=== PATIENT | male | born 1935 | race Caucasian/White ===

== ENCOUNTER 2019-05-19 07:42 | Outpatient (CLI) | payer MEDICARE ==
--- NOTE | 2019-05-19 09:35 | MRI ---
MRI CERVICAL SPINE WITHOUT CONTRAST: HISTORY: M54.12 cervical radicular pain. COMPARISON: Radiographs of same day. FINDINGS: The cerebellar tonsils terminate at the level of the foramen magnum. No acute fracture or malalignmen t. No marrow infiltrative process. Paraspinal musculature is symmetric. No cervical adenopathy. There are erosive changes of the posterior margin of the odontoid process. 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 Levels are as follows: C2-C3: Severe degenerative facet arthropathy. 2 mm anterolisthesis. Moderate uncinate process hypertr ophy. Mild ligament flavum hypertrophy. Severe left and moderate right neural foraminal narrowing. The spinal canal measures approximately 8 mm. C3-C4: 1-2 mm anterolisthesis. Severe degenerative disc space height loss with large circumferential disc-osteophyte complex. There is abutment of the ventral cord. Spinal canal measures 7 mm. Severe right and moderate to severe left neural foraminal narrowing. C4-C5: Mild degenerative disc space height loss. 2 mm anterolisthesis. Severe right and moderate left hypertrophic facet arthropathy. High-grade ligamentum flavum hypertrophy. There is cord impingement with the spinal canal measuring approximately 5 mm. C5-C6: Severe degenerative disc space height loss with a very large circumferential disc-osteophyte c omplex. Mild ligament of flavum hypertrophy. There is cord impingement of the spinal canal measuring approximately 5 mm. Severe left and moderate to severe right neural foraminal narrowing. C6-C7: Moderate degenerative disc space height loss. Large circumferential disc osteophyte complex. M ild degenerative disease of the right facet joint. 1-2 mm retrolisthesis. Severe right and left neural foraminal narrowing. C7-T1: 2 mm anterolisthesis. Moderate hypertrophic facet arthrosis on the right and moderate to sever e on the left. Moderate bilateral neural foraminal narrowing. There is abnormal increased fluid signal of the cord which is impinged from C3-C5 and mildly atrophie d distal to C5. IMPRESSION: 1. High-grade multilevel severe degenerative change as described with exiting nerve root impingement as well as cord impingement. 2. Mild edema throughout the cord from C3-C5. Transcribed Date/Time: 05/19/2019 9:49 AM
--- NOTE | 2019-05-19 10:06 | RAD ---
XR Sinuses Leal View Only History: MRI clearance Comparison: None. Findings: No radiopaque foreign object is seen projecting over the orbits. Impression: No radiopaque foreign object seen projecting over the orbits.
--- NOTE | 2019-05-19 10:20 | RAD ---
CERVICAL SPINE SERIES THREE VIEWS: HISTORY: Neck pain. FINDINGS: There are severe osteoarthritic changes of the neck. There is marked disk narrowing at C3-C4, C5-C6 a nd C6-C7. There is moderate disk narrowing at the C4-C5 level. There are prominent degenerative facet changes present. There are carotid bulb calcifications noted. IMPRESSION: Severe osteoarthritic changes of the spine. POS: TPC
== END 2019-05-19 07:43 | disposition home or self-care (01) ==
LOC: BICMRI 07:42
PROVIDERS: ATTEND Family Medicine
DX: M50.10 Cervical disc disorder with radiculopathy, unspecified cervical region (principal); M47.22 Other spondylosis with radiculopathy, cervical region; R60.0 Localized edema; G95.9 Disease of spinal cord, unspecified
CPT/HCPCS: 70210; 72040; 72141

== ENCOUNTER 2020-06-15 10:27 | Outpatient (CLI) | payer MEDICARE ==
--- NOTE | 2020-06-15 11:19 | CT ---
Exam: CT cervical spine without contrast HISTORY: Chronic neck pain. COMPARISON: None. CORRELATION: Cervical spine MRI 05/19/2019. FINDINGS: No craniocervical dissociation. Appropriate alignment of the lateral masses of C1 and C2. Intact odon toid process Appropriate alignment of the facets. 3.5 mm of anterolisthesis of C2 upon C3 and 3.2 mm of anterolisthesis of C4 upon C5 is once again dem onstrated. Soft tissue neck structures: No mass, lymphadenopathy or hematoma. No prevertebral soft tissue swelli ng. Upper mediastinum and lung apices: Unremarkable Central spinal canal: Evaluation is limited by the lack of intrathecal contrast. C2-C3: Broad-based disc osteophyte complex. Moderate central canal stenosis. Moderate bilateral neura l foraminal narrowing due to uncovertebral and facet hypertrophy. C3-C4: Severe loss of disc space height. Broad-based disc osteophyte complex. Severe central canal st enosis. Severe bilateral neural foraminal narrowing due to uncovertebral and right greater the left facet hypertrophy C4-C5: Broad-based disc bulge with slight superior disc migration. Moderate central canal stenosis. M oderate to severe right and left neural foraminal narrowing due to uncovertebral and facet hypertrophy. C5-C6: Vacuum disc phenomenon. There is a broad-based disc osteophyte complex with a central/left par acentral disc osteophyte complex. Severe central canal stenosis. Severe bilateral neural foraminal narrowing. C6-C7: Severe loss of disc space height. Broad-based disc osteophyte complex. Severe central canal st enosis and severe bilateral neural foraminal narrowing. C7-T1: No significant central canal stenosis or significant neural foraminal narrowing. Vertebral bodies: Cervical spine vertebral body height is maintained. No fracture. IMPRESSION: 1. No fracture. 2. Multilevel degenerative changes of the cervical spine as detailed above. Transcribed Date/Time: 06/15/2020 11:27 AM
== END 2020-06-15 10:28 | disposition home or self-care (01) ==
LOC: BICCT 10:27
PROVIDERS: ATTEND Surgery
DX: M47.12 Other spondylosis with myelopathy, cervical region (principal); M50.00 Cervical disc disorder with myelopathy, unspecified cervical region
CPT/HCPCS: 72125

== ENCOUNTER 2020-08-28 08:44 | Outpatient (CLI) | payer MEDICARE ==
[2020-08-28 11:34] LABS: Hemoglobin 15.9 g/dL (13.5-17.5); Mean Corpuscular HGB CONC 33.1 g/dL (32.0-36.0); Mean Corpuscular Hemoglobin 29.9 pg (27.0-33.0); Mean Corpuscular Volume 90.4 fl (81.2-95.1); Mean Platelet Volume 9.9 fl (7.4-10.4); Platelet Count 297 10x3/uL (150-450); RBC Distribution Width 13.5 % (11.5-14.5); Red Blood Cell (RBC) Count 5.31 10x6/uL (4.32-5.72); White Blood Cell (WBC) Count 8.3 10x3/uL (3.5-10.5)
[2020-08-28 11:44] LABS: Anion Gap 12 mmol/L (10-20); BUN (Urea Nitrogen) 11 mg/dL (8.4-25.7); Calc. Creatinine Clearance 0 mL/min (70-130); Calcium 9.5 mg/dL (7.8-10.44); Carbon Dioxide 31 mmol/L (23-31); Chloride 98 mmol/L (98-107); Glucose 111 mg/dL (83-110); Potassium 4.1 mmol/L (3.5-5.1); Sodium 137 mmol/L (136-145)
[2020-08-28 12:03] LABS: PTT 26.8 sec (22.0-33.0); Prothrombin Time 10.2 sec (9.5-12.1)
[2020-08-28 22:18] LABS: SARS-CoV-2 PCR by NAA Not Detected (NotDetected)
== END 2020-08-28 08:45 | disposition home or self-care (01) ==
LOC: LABBT 08:44
PROVIDERS: ATTEND Surgery
DX: Z01.818 Encounter for other preprocedural examination (principal); M48.02 Spinal stenosis, cervical region; M54.12 Radiculopathy, cervical region; Z20.822 Contact with and (suspected) exposure to COVID-19
CPT/HCPCS: 80048; 85027; 85610; 85730; 93005; U0003; U0005; 87635; 93010

== ENCOUNTER 2020-08-31 06:09 | Inpatient (IN) | payer MEDICARE ==
[2020-08-31] MEDS ORDERED: Levofloxacin 500 mg/D5W 100 ml Premix Bag ONE (06:36)
[2020-08-31] MEDS ORDERED: Bacitracin Zinc Ointment 30 gm TUBE ONE (06:36)
[2020-08-31] MEDS ORDERED: Clindamycin/D5W 900 mg/50 ml Premix Bag ONE ×2 (06:36→16:23)
[2020-08-31] MEDS ORDERED: Thrombin 5000 UNITS/5 ML VIAL ONE (06:36)
[2020-08-31] MEDS ORDERED: Fentanyl 250 MCG/5 ML VIAL ONE (07:01)
[2020-08-31] MEDS ORDERED: Glycopyrrolate 0.2 MG/ML 5 ML SYRINGE ONE (07:51)
[2020-08-31] MEDS ORDERED: Lidocaine 1% PF 5 ML VIAL ONE (07:51)
[2020-08-31] MEDS ORDERED: PHENYLEPHRINE-NS 100 MCG/ML 10 ML SYRINGE ONE ×2 (07:51→11:41)
[2020-08-31] MEDS ORDERED: Dexamethasone 20 MG/5 ML VIAL ONE (07:51)
[2020-08-31] MEDS ORDERED: Ondansetron PF 4 MG/2 ML Vial ONE (07:51)
[2020-08-31] MEDS ORDERED: PROPOFOL 200 MG/20 ML VIAL ONE (07:51)
[2020-08-31] MEDS ORDERED: ePHEDrine 50 MG/ML VIAL ONE (07:51)
[2020-08-31] MEDS ORDERED: Rocuronium Bromide 10 MG/ML (10ML VIAL) ONE (07:51)
[2020-08-31] MEDS ORDERED: tiZANidine HCl 4 MG TAB PO PRN (07:54)
[2020-08-31] MEDS ORDERED: Acetaminophen 325 MG TAB PO PRN (07:54)
[2020-08-31] MEDS ORDERED: Mag-Al 1200 mg/1200 mg/30 ML UDCUP PO PRN (07:54)
[2020-08-31] MEDS ORDERED: traMADol HCl 50 MG TAB PO PRN (07:54)
[2020-08-31] MEDS ORDERED: Morphine 2 MG/ML VIAL SLOW IVP PRN (07:54)
[2020-08-31] MEDS ORDERED: HYDROcodone/Acetaminophen 7.5/325 mg Tablet PO PRN (07:54)
[2020-08-31] MEDS ORDERED: Milk Of Magnesia 30 ML UDCUP PO PRN (07:54)
[2020-08-31] MEDS ORDERED: Bisacodyl 10 MG SUPP PR PRN (07:54)
[2020-08-31] MEDS ORDERED: Acetaminophen/Codeine 30-300mg Tablet PO PRN (07:54)
[2020-08-31] MEDS ORDERED: Rocuronium Bromide 50 MG/5 ML VIAL ONE ×2 (08:54→10:28)
[2020-08-31] MEDS ORDERED: HYDROmorphone 2 MG/ML VIAL ONE (10:35)
[2020-08-31] MEDS ORDERED: PROPOFOL 20 ML ONE (10:38)
[2020-08-31] MEDS ORDERED: SUGAMMADEX SODIUM 200 MG/2 ML VIAL ONE (12:07)
[2020-08-31] MEDS ORDERED: Promethazine HCl 25 MG/ML VIAL IM PRN ×2 (12:49→13:45)
[2020-08-31] MEDS ORDERED: Promethazine HCl 25 MG/ML VIAL SLOW IVP PRN (12:49)
[2020-08-31] MEDS ORDERED: Ondansetron HCl/PF 4 MG/2 ML Vial IVP PRN (12:49)
[2020-08-31] MEDS ORDERED: HYDROmorphone 2 MG/ML VIAL SLOW IVP PRN (12:49)
[2020-08-31] MEDS ORDERED: Fentanyl 100 MCG/2 ML VIAL ONE ×2 (13:09→13:30)
[2020-08-31] MEDS ORDERED: Ondansetron PF 4 MG/2 ML Vial IVP PRN (13:45)
[2020-08-31] MEDS ORDERED: Zolpidem Tartrate 5 MG TAB PO PRN (13:45)
[2020-08-31] MEDS ORDERED: fentaNYL Citrate/PF 2,000 MCG in Sodium Chloride 0.9% 60 ML IV PRN (13:45)
[2020-08-31] MEDS ORDERED: diphenhydrAMINE 25 MG CAP PO PRN (13:45)
[2020-08-31] MEDS ORDERED: Naloxone HCl 0.4 mg/ml Vial IV PRN (13:45)
[2020-08-31] MEDS ORDERED: Acetaminophen 500 MG TAB PO PRN (13:46)
[2020-08-31] MEDS ORDERED: HYDROmorphone 0.5 MG/0.5 ML SYRINGE ONE ×2 (13:52→14:07)
[2020-08-31] MEDS ORDERED: Clindamycin/D5W 900 MG in Premix Bag 1 BAG IVPB SCH (14:00)
[2020-08-31] MEDS: Sodium Chloride 0.9% 1,000 ML IV SCH (16:18)
[2020-08-31] MEDS: Hydrochlorothiazide 25 MG TAB PO SCH (16:19)
[2020-08-31] MEDS: Amlodipine 10 MG TAB PO SCH (16:19)
[2020-08-31] MEDS: Clindamycin/D5W 900 MG in Premix Bag 1 BAG IVPB SCH (16:43)
[2020-08-31] MEDS: Cholecalciferol 1,000 UNITS (25 MCG) TAB PO SCH (20:39)
[2020-08-31] MEDS: Tamsulosin HCl 0.4 MG CAP PO SCH (20:39)
[2020-08-31] MEDS: Finasteride 5 MG TAB PO SCH (20:39)
[2020-08-31] MEDS ORDERED: hydrALAZINE 20 MG/ML VIAL SLOW IVP PRN (21:56)
[2020-08-31] MEDS: Labetalol HCl 100 MG/20 ML VIAL SLOW IVP PRN (22:30)
[2020-09-01] MEDS: Clindamycin/D5W 900 MG in Premix Bag 1 BAG IVPB SCH ×3 (00:16→17:06)
[2020-09-01 00:45] LABS: #Lymphocytes 1.1 thou/uL (1.20-3.40); #Monocytes 1.1 thou/uL (0.11-0.59); #Neutrophils 12.8 thou/uL (1.40-6.50); %Basophils 0.1 % (0.0-1.0); %Lymphocytes 7.5 % (21.0-51.0); %Neutrophils 85.3 % (42.0-75.0); Hemoglobin 14.7 g/dL (14.0-18.0); Mean Corpuscular HGB CONC 33.4 g/dL (32.0-36.0); Mean Corpuscular Hemoglobin 30.8 pg (27.0-31.0); Mean Corpuscular Volume 92.2 fL (78.0-98.0); Mean Platelet Volume 7.2 fL (7.4-10.4); Platelet Count 272 thou/uL (130-400); RBC Distribution Width 12.9 % (11.5-14.5); Red Blood Cell (RBC) Count 4.79 mill/uL (4.70-6.10); White Blood Cell (WBC) Count 14.9 thou/uL (4.8-10.8)
[2020-09-01 01:02] LABS: Lactic Acid 3.1 mmol/L (0.5-2.2)
[2020-09-01 01:06] LABS: ALT (SGPT) 27 U/L (8-55); AST (SGOT) 50 U/L (5-34); Albumin 3.9 g/dL (3.4-4.8); Alkaline Phosphatase 76 U/L (40-110); Anion Gap 12 mmol/L (10-20); BUN (Urea Nitrogen) 9 mg/dL (8.4-25.7); Bilirubin, Total 0.6 mg/dL (0.2-1.2); Calc. Creatinine Clearance 119 mL/min (70-130); Calcium 8.7 mg/dL (7.8-10.44); Carbon Dioxide 25 mmol/L (23-31); Chloride 100 mmol/L (98-107); Globulin 2.9 g/dL (2.4-3.5); Glucose 169 mg/dL (83-110); Magnesium 1.7 mg/dL (1.6-2.6); Potassium 3.9 mmol/L (3.5-5.1); Protein, Total 6.8 g/dL (5.8-8.1); Sodium 133 mmol/L (136-145)
[2020-09-01] MEDS ORDERED: Magnesium 2 GM/50 ML 2 GM in Premix Bag 1 BAG IVPB SCH (01:45)
[2020-09-01] MEDS: Sodium Chloride 0.9% 1,000 ML IV SCH ×2 (02:03→10:38)
[2020-09-01 02:42] VITALS: BMI 25.8
[2020-09-01 05:22] LABS: #Lymphocytes 1.4 thou/uL (1.20-3.40); #Monocytes 2.1 thou/uL (0.11-0.59); #Neutrophils 12.6 thou/uL (1.40-6.50); %Basophils 0.2 % (0.0-1.0); %Eosinophils 0.1 % (0.0-10.0); %Lymphocytes 8.9 % (21.0-51.0); %Monocytes 12.9 % (0.0-10.0); Hemoglobin 14.3 g/dL (14.0-18.0); Mean Corpuscular HGB CONC 32.5 g/dL (32.0-36.0); Mean Corpuscular Volume 92.3 fL (78.0-98.0); Mean Platelet Volume 7.2 fL (7.4-10.4); Platelet Count 269 thou/uL (130-400); Red Blood Cell (RBC) Count 4.76 mill/uL (4.70-6.10); White Blood Cell (WBC) Count 16.2 thou/uL (4.8-10.8)
[2020-09-01 05:40] LABS: Anion Gap 11 mmol/L (10-20); BUN (Urea Nitrogen) 8 mg/dL (8.4-25.7); Calc. Creatinine Clearance 104 mL/min (70-130); Calcium 8.7 mg/dL (7.8-10.44); Carbon Dioxide 27 mmol/L (23-31); Chloride 100 mmol/L (98-107); Glucose 128 mg/dL (83-110); Magnesium 2.4 mg/dL (1.6-2.6); Potassium 3.8 mmol/L (3.5-5.1); Sodium 134 mmol/L (136-145)
[2020-09-01] MEDS ORDERED: OLANZapine 10 MG VIAL IM SCH (06:45)
[2020-09-01] MEDS ORDERED: Ziprasidone 20 MG CAP PO SCH ×2 (07:00→07:30)
[2020-09-01] MEDS: Labetalol HCl 100 MG/20 ML VIAL SLOW IVP PRN ×3 (07:28→23:45)
[2020-09-01] MEDS: Cholecalciferol 1,000 UNITS (25 MCG) TAB PO SCH (07:46)
[2020-09-01] MEDS: Tamsulosin HCl 0.4 MG CAP PO SCH (07:46)
[2020-09-01] MEDS: Amlodipine 10 MG TAB PO SCH (07:47)
[2020-09-01] MEDS: Hydrochlorothiazide 25 MG TAB PO SCH (07:48)
[2020-09-01] MEDS: Finasteride 5 MG TAB PO SCH (07:48)
[2020-09-01] MEDS: Morphine 2 MG/ML VIAL SLOW IVP SCH ×2 (07:59→08:41)
[2020-09-01] MEDS: Diazepam 5 MG TAB PO PRN ×2 (13:24→21:26)
[2020-09-01] MEDS: diphenhydrAMINE 50 MG/ML VIAL IM/IV PRN (23:53)
[2020-09-02] MEDS: Clindamycin/D5W 900 MG in Premix Bag 1 BAG IVPB SCH ×3 (01:17→16:09)
[2020-09-02] MEDS: Sodium Chloride 0.9% 1,000 ML IV SCH ×2 (01:25→13:02)
[2020-09-02] MEDS: diphenhydrAMINE 50 MG/ML VIAL IM/IV PRN (03:08)
[2020-09-02 05:36] LABS: #Lymphocytes 1.3 thou/uL (1.20-3.40); #Neutrophils 13.7 thou/uL (1.40-6.50); %Eosinophils 0.1 % (0.0-10.0); %Lymphocytes 7.5 % (21.0-51.0); %Monocytes 11.9 % (0.0-10.0); %Neutrophils 80.6 % (42.0-75.0); Hemoglobin 14.8 g/dL (14.0-18.0); Mean Corpuscular HGB CONC 32.1 g/dL (32.0-36.0); Mean Corpuscular Hemoglobin 29.6 pg (27.0-31.0); Mean Corpuscular Volume 92.2 fL (78.0-98.0); Mean Platelet Volume 7.2 fL (7.4-10.4); Platelet Count 250 thou/uL (130-400); RBC Distribution Width 12.7 % (11.5-14.5); Red Blood Cell (RBC) Count 5.01 mill/uL (4.70-6.10)
[2020-09-02 05:57] LABS: Anion Gap 12 mmol/L (10-20); BUN (Urea Nitrogen) 11 mg/dL (8.4-25.7); Calc. Creatinine Clearance 91 mL/min (70-130); Carbon Dioxide 30 mmol/L (23-31); Chloride 93 mmol/L (98-107); Glucose 163 mg/dL (83-110); Potassium 3.5 mmol/L (3.5-5.1); Sodium 131 mmol/L (136-145)
[2020-09-02] MEDS: Cholecalciferol 1,000 UNITS (25 MCG) TAB PO SCH ×2 (07:57→09:05)
[2020-09-02] MEDS: Finasteride 5 MG TAB PO SCH (07:57)
[2020-09-02] MEDS: Amlodipine 10 MG TAB PO SCH ×2 (07:57→08:07)
[2020-09-02] MEDS: Hydrochlorothiazide 25 MG TAB PO SCH (07:57)
[2020-09-02] MEDS: Tamsulosin HCl 0.4 MG CAP PO SCH (07:58)
[2020-09-02] MEDS: Labetalol HCl 100 MG/20 ML VIAL SLOW IVP PRN (09:04)
[2020-09-02] MEDS ORDERED: Morphine 2 MG/ML VIAL SLOW IVP PRN (15:34)
[2020-09-02] MEDS: Acetaminophen/Codeine 30-300mg Tablet PO PRN (20:36)
[2020-09-03] MEDS: Clindamycin/D5W 900 MG in Premix Bag 1 BAG IVPB SCH ×2 (01:55→08:20)
[2020-09-03] MEDS: Sodium Chloride 0.9% 1,000 ML IV SCH ×2 (02:57→15:08)
[2020-09-03] MEDS: HYDROcodone/Acetaminophen 7.5/325 mg Tablet PO PRN ×3 (04:53→21:36)
[2020-09-03] MEDS: Labetalol HCl 100 MG/20 ML VIAL SLOW IVP PRN (04:55)
[2020-09-03] MEDS: Tamsulosin HCl 0.4 MG CAP PO SCH (08:21)
[2020-09-03] MEDS: Amlodipine 10 MG TAB PO SCH (08:22)
[2020-09-03] MEDS: Cholecalciferol 1,000 UNITS (25 MCG) TAB PO SCH (08:22)
[2020-09-03] MEDS: Finasteride 5 MG TAB PO SCH (08:23)
[2020-09-03] MEDS: Acetaminophen/Codeine 30-300mg Tablet PO PRN (08:32)
[2020-09-03 12:30] LABS: Anion Gap 11 mmol/L (10-20); BUN (Urea Nitrogen) 23 mg/dL (8.4-25.7); Calc. Creatinine Clearance 90 mL/min (70-130); Calcium 8.8 mg/dL (7.8-10.44); Carbon Dioxide 31 mmol/L (23-31); Chloride 94 mmol/L (98-107); Glucose 189 mg/dL (83-110); Potassium 3.1 mmol/L (3.5-5.1); Sodium 133 mmol/L (136-145)
[2020-09-03] MEDS: Potassium Chloride 20 MEQ TAB PO SCH ×2 (15:25→21:36)
[2020-09-03] MEDS: hydrALAZINE 20 MG/ML VIAL SLOW IVP PRN (19:48)
[2020-09-04] MEDS: traMADol HCl 50 MG TAB PO PRN ×2 (03:49→12:52)
[2020-09-04] MEDS: Acetaminophen/Codeine 30-300mg Tablet PO PRN ×3 (03:49→17:50)
[2020-09-04] MEDS: hydrALAZINE 20 MG/ML VIAL SLOW IVP PRN (03:51)
[2020-09-04] MEDS: Sodium Chloride 0.9% 1,000 ML IV SCH ×2 (05:26→17:27)
[2020-09-04] MEDS: Tamsulosin HCl 0.4 MG CAP PO SCH (08:22)
[2020-09-04] MEDS: Cholecalciferol 1,000 UNITS (25 MCG) TAB PO SCH (08:22)
[2020-09-04] MEDS: Amlodipine 10 MG TAB PO SCH (08:22)
[2020-09-04] MEDS: Finasteride 5 MG TAB PO SCH (08:22)
[2020-09-04 08:31] LABS: #Lymphocytes 1.7 thou/uL (1.20-3.40); #Monocytes 1.4 thou/uL (0.11-0.59); #Neutrophils 11.2 thou/uL (1.40-6.50); %Basophils 0.3 % (0.0-1.0); %Eosinophils 0.3 % (0.0-10.0); %Lymphocytes 11.7 % (21.0-51.0); %Neutrophils 77.7 % (42.0-75.0); Hemoglobin 15.8 g/dL (14.0-18.0); Mean Corpuscular HGB CONC 33.5 g/dL (32.0-36.0); Mean Corpuscular Hemoglobin 30.9 pg (27.0-31.0); Mean Corpuscular Volume 92.2 fL (78.0-98.0); Mean Platelet Volume 7.4 fL (7.4-10.4); Platelet Count 277 thou/uL (130-400); RBC Distribution Width 12.7 % (11.5-14.5); Red Blood Cell (RBC) Count 5.12 mill/uL (4.70-6.10); White Blood Cell (WBC) Count 14.4 thou/uL (4.8-10.8)
[2020-09-04 08:41] LABS: Anion Gap 14 mmol/L (10-20); BUN (Urea Nitrogen) 20 mg/dL (8.4-25.7); Calc. Creatinine Clearance 104 mL/min (70-130); Calcium 9.3 mg/dL (7.8-10.44); Carbon Dioxide 27 mmol/L (23-31); Chloride 97 mmol/L (98-107); Glucose 129 mg/dL (83-110); Potassium 3.8 mmol/L (3.5-5.1); Sodium 134 mmol/L (136-145)
[2020-09-04 15:38] VITALS: BP 175/92; TEMP 98.2
== END 2020-09-04 19:04 | DRG 454 ==
LOC: SDC 06:09 → SURG A 07:51
PROVIDERS: ADMIT Surgery; ATTEND Surgery
PROC: 0RG20A0 Fusion of 2 or more Cervical Vertebral Joints with Interbody Fusion Device, Anterior Approach, Anterior Column, Open Approach (ICD-10-PCS; principal; 2020-08-31)
PROC: 0RG2071 Fusion of 2 or more Cervical Vertebral Joints with Autologous Tissue Substitute, Posterior Approach, Posterior Column, Open Approach (ICD-10-PCS; 2020-08-31)
PROC: 0RB30ZZ Excision of Cervical Vertebral Disc, Open Approach (ICD-10-PCS; 2020-08-31)
PROC: 01N10ZZ Release Cervical Nerve, Open Approach (ICD-10-PCS; 2020-08-31)
PROC: 00NW0ZZ Release Cervical Spinal Cord, Open Approach (ICD-10-PCS; 2020-08-31)
DX: M48.02 Spinal stenosis, cervical region (principal); G95.9 Disease of spinal cord, unspecified; F05 Delirium due to known physiological condition; E87.1 Hypo-osmolality and hyponatremia; M54.12 Radiculopathy, cervical region; N40.0 Benign prostatic hyperplasia without lower urinary tract symptoms; I10 Essential (primary) hypertension; R00.0 Tachycardia, unspecified; M19.90 Unspecified osteoarthritis, unspecified site; F03.90 Unspecified dementia, unspecified severity, without behavioral disturbance, psychotic disturbance, mood disturbance, and anxiety; E78.5 Hyperlipidemia, unspecified; Z98.1 Arthrodesis status; Z87.891 Personal history of nicotine dependence; Z88.0 Allergy status to penicillin; Z91.041 Radiographic dye allergy status
CPT/HCPCS: 36415; 71045; 76000; 80048; 83605; 83735; 83880; 84484; 85025; 85027; 85610; 85730; 86850; 86900; 86901; 87635; 93005; 93010; 93970; C1713; C1768; C1776; J0360; J1100; J1170; J1200; J1956; J2270; J2405; J2704; J3010; J3370; J3475; J3490; U0003; U0005

== ENCOUNTER 2020-10-12 12:09 | Outpatient (CLI) | payer MEDICARE | END 2020-10-12 12:10 | disposition home or self-care (01) | LOC: RAD 12:09 | PROVIDERS: ATTEND Surgery | DX: M50.00 Cervical disc disorder with myelopathy, unspecified cervical region (principal); M50.10 Cervical disc disorder with radiculopathy, unspecified cervical region; M47.12 Other spondylosis with myelopathy, cervical region; M47.26 Other spondylosis with radiculopathy, lumbar region | CPT/HCPCS: 72040 ==

== ENCOUNTER 2022-02-01 11:14 | Outpatient (CLI) | payer MEDICARE | END 2022-02-01 11:15 | disposition home or self-care (01) | LOC: SCSMRI 11:14 | PROVIDERS: ATTEND Family Medicine | DX: M89.49 Other hypertrophic osteoarthropathy, multiple sites (principal); F03.90 Unspecified dementia, unspecified severity, without behavioral disturbance, psychotic disturbance, mood disturbance, and anxiety; N40.0 Benign prostatic hyperplasia without lower urinary tract symptoms; Z98.890 Other specified postprocedural states | CPT/HCPCS: 72156; 82565 ==